=== PATIENT | male | born 1955 | race Caucasian/White ===

== ENCOUNTER 2021-04-06 11:02 | Emergency (ER) | payer MEDICAID ==
[~2021-04-06] VITALS: Ht 175.3 cm; Wt 63.6 kg
[2021-04-06 11:18] VITALS: TEMP 98.1
[2021-04-06 13:36] VITALS: BP 120/81; PULSE 72
--- NOTE | 2021-04-06 14:53 | NUR ---
SW informed that patient's daughter Torrie Frsaer wanted to speak to case management to obtain resources for patient. SW met with patient and daughter and discussed needs. SW provided resources for the community, HH agencies, nursing homes, and information in regards to establishing a PCP. Daughter provided that she has the contact information for [facility] and would like ref. faxed to their agency. SW assisted with ontaining orders to fax to facility. Nothing further.
== END 2021-04-06 13:57 | disposition home or self-care (01) ==
LOC: COL.ER 11:02
DX: F03.90 Unspecified dementia, unspecified severity, without behavioral disturbance, psychotic disturbance, mood disturbance, and anxiety (principal); K40.90 Unilateral inguinal hernia, without obstruction or gangrene, not specified as recurrent; Z01.89 Encounter for other specified special examinations

== ENCOUNTER 2021-04-16 13:41 | Inpatient (IN) | payer MEDICAID ==
[~2021-04-16] VITALS: Ht 175.3 cm; Wt 56.2 kg
[2021-04-16 14:03] LABS: HEMATOCRIT 38.7 % (42.0-52.0); HEMOGLOBIN 11.9 g/dl (13.5-18.0); MEAN CELL VOLUME 97 fl (80.0-100.0); MEAN CORPUSCULAR HEMOGLOBIN 30 pg (27.0-31.0); MEAN CORPUSCULAR HGB CONC 31 g/dl (33.0-37.0); MEAN PLATELET VOLUME 8.1 fl (7.4-10.4); PLATELET COUNT 376 K/mm3 (130-400); RED BLOOD COUNT 4.01 M/mm3 (4.20-5.60); REDCELL DISTRIBUTION WIDTH-CV 14.4 % (11.5-14.5)
[2021-04-16 14:20] LABS: BAND 16 % (0-10); LYMPHOCYTE 3 % (20.0-51.0); NEUTROPHILS 79 % (42.0-75.2); PLATELET ESTIMATE NORMAL (NORMAL)
[2021-04-16 14:22] LABS: ALANINE AMINOTRANSFERASE 35 U/L (0-55); ALBUMIN 3.3 gm/dL (3.4-4.8); ALKALINE PHOSPHATASE 92 U/L (40-150); ANION GAP 11 mmol/L (7-16); AST,SGOT 29 U/L (5-34); BILIRUBIN,TOTAL 0.6 mg/dL (0.2-1.2); BLOOD UREA NITROGEN 12 mg/dL (8-26); C-REACTIVE PROTEIN 4.07 mg/dL (0.00-0.50); CALCIUM 9.2 mg/dL (8.4-10.2); CARBON DIOXIDE 24 mmol/L (23-31); CHLORIDE 103 mmol/L (98-107); CREATININE, serum 0.77 mg/dL (0.72-1.25); GLUCOSE 113 mg/dL (70-99); LIPASE 63 U/L (8-78); POTASSIUM 4.4 mmol/L (3.5-4.5); SODIUM 138 mmol/L (136-145); TOTAL PROTEIN 6.3 gm/dL (6.2-8.1)
[2021-04-16 14:37] LABS: TROPONIN-I < 0.010 ng/mL (0.00-0.033)
[2021-04-16 16:25] LABS: COLLECTION METHOD CLEAN CATCH
[2021-04-16 16:39] LABS: MUCOUS Present /lpf; PH 7 (5-8); SQUAMOUS EPITHELIAL None Seen /hpf; URINE APPEARANCE Clear; URINE BACTERIA Rare /hpf; URINE BILIRUBIN Negative (NEGATIVE); URINE BLOOD Negative (NEGATIVE); URINE COLOR Colorless; URINE GLUCOSE Negative (NEGATIVE); URINE KETONE Negative (NEGATIVE); URINE LEUKOCYTE ESTERASE Negative (NEGATIVE); URINE NITRATE Negative (NEGATIVE); URINE PROTEIN(semi-quant) Negative (NEGATIVE); URINE RBC 0-2 /hpf; URINE UROBILINOGEN Negative (NEGATIVE)
[2021-04-16 16:48] LABS: ARTERIAL BLD GAS O2 SATURATION 95.4 % (92-100); ARTERIAL BLD GAS TCO2 CT 21.6; ARTERIAL BLOOD GAS BASE EXCESS -2.5 (-2-2); ARTERIAL BLOOD GAS HCO3 20.7 meq/L (22-26); ARTERIAL BLOOD GAS PCO2 30.8 mmHg (35-45); ARTERIAL BLOOD GAS PO2 71.4 mmHg (80-100); ARTERIAL BLOOD GAS pH 7.45 (7.35-7.45)
[2021-04-16 17:58] LABS: TROPONIN-I < 0.010 ng/mL (0.00-0.033)
--- NOTE | 2021-04-16 18:45 | NUR ---
Pt arrived to room 313, he is very drowsy. He will awaken for some questions but quickly falls back asleep. Follows some commands but pushes the nurse away. Daughter reports patient has pain to L inguinal hernia with movement. Breathing is even and unlabored on RA, intermittent wet cough present. Orders to do bedside swallow study if patient becomes alert enough for PO intake. Appears to be resting comfortably at this time, seizure precautions in place. Bed alarm in place.
[2021-04-16 19:47] VITALS: BP 98/59; PULSE 88; TEMP 99.1
--- NOTE | 2021-04-16 20:00 | NUR ---
Assessment complete. He arouses to voice but is not fully alert; he is confused, but does follow some commands. Hand hardware test engineer are equal. Bilateral feet/ankles are edematous with no pitting; his scrotum is edematous as well. A left-sided inguinal hernia is noted and is painful when palpated. Pt's sacrum is redenned but blanchable. Patient is incontinent of urine at this time and linen change/adam care is provided. Bed alarm set and frequent monitoring in progress.
[2021-04-17] VITALS (7 sets, daily range): BP systolic 95–108; BP diastolic 45–84; PULSE 73–78; TEMP 97.8–98.4
--- NOTE | 2021-04-17 05:15 | NUR ---
Patient has rested for most of the night. He was impulsive, trying to get out of bed once; he was cooperative. He had been incontinent of urine and was once again provided with hygeine and new brief. He did stand well and was able to ambulate with assistance for a short period of time in the room. Pt is still confused and neuro checks have remained consistent. Bed alarm set.
[2021-04-17 06:29] LABS: HEMOGLOBIN 10.4 g/dl (13.5-18.0); MEAN CORPUSCULAR HEMOGLOBIN 30 pg (27.0-31.0); MEAN CORPUSCULAR HGB CONC 33 g/dl (33.0-37.0); MEAN PLATELET VOLUME 8.6 fl (7.4-10.4); PLATELET COUNT 361 K/mm3 (130-400); RED BLOOD COUNT 3.45 M/mm3 (4.20-5.60); REDCELL DISTRIBUTION WIDTH-CV 14.4 % (11.5-14.5)
[2021-04-17 06:33] LABS: HEMATOCRIT 31.8 % (42.0-52.0); MEAN CELL VOLUME 92 fl (80.0-100.0)
[2021-04-17 06:46] LABS: CALCIUM 8.1 mg/dL (8.4-10.2); CREATININE, serum 0.72 mg/dL (0.72-1.25)
--- NOTE | 2021-04-17 07:30 | NUR ---
PT EASILY AGITATED, PT CANNOT ANSWER ORIENTATION QUESTIONS, ALERT TO SELF, PERICARE COMPLETED, PT INCONTINENT OF URINE, SACRUM/COCCYX VISUALIZED AND INTACT, PT WOULD NOT CLAMPER FINGERS ON COMMAND OR PERFORM OTHER COMMANDS, PT ATTEMPTINT TO GET OUT OF BED, FALL PRECAUTIONS IN PLACE, BED ALARM ON, NO OTHER NEEDS AT THIS TIME
[2021-04-17 08:00] LABS: BAND 22 % (0-10); LYMPHOCYTE 7 % (20.0-51.0); NEUTROPHILS 69 % (42.0-75.2); PLATELET ESTIMATE NORMAL (NORMAL)
--- NOTE | 2021-04-17 08:50 | NUR ---
ENTERED PT ROOM, PT TEARFUL AND KEEPS STATING "NOW HE'S , HE WAS HERE AND GONE JUST LIKE THAT". ATTEMPTED TO REORIENT PATIENT BUT PT STILL TEARFUL. VITALS TAKEN TO ASSESS FOR ATIVAN ADMINISTRATION. BP SOFT, LATA SHABAZZ NOTIFIED AND BOLUS ORDERED AND INFUSING.
--- NOTE | 2021-04-17 10:10 | NUR ---
Initial visit; Patient who appears to be confused trying to get out of his bed which had side rails. Steno Typist retrieved his nurse who tucked him in. Another nurse checked his bed alarm finding it off so changed it to 'on' for his safety.
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
[2021-04-17 11:36] LABS: TRICYCLIC ANTIDEPRESS URINE NEGATIVE
--- NOTE | 2021-04-17 13:11 | NUR ---
SW consulted Financial Counseling.
--- NOTE | 2021-04-17 16:21 | NUR ---
Patient was sitting in the recliner with the legs up and chair alarm on. Chair alarm went off and this RN entered the room. Patient was sitting on the legs of the chair and attempting to stand up. The legs of the chair started to collapse and this RN was able to grab the patient and hold him up. Patient was then transferred to the bed. Patient began crying and stating, "She was such a good horse, she was a brownie". This RN tried to console but was unsuccessful. Patient's primary RN notified of the incident.
--- NOTE | 2021-04-17 17:46 | NUR ---
OBTAINED CONSENT FROM PT DA FOR SEDATION FOR MRI AND LP AND OBTAINED CONSENT FOR LP. ANSWERED DA'S QUESTIONS TO BEST OF MY ABILITY, ABX AND FLUIDS INFUSING, PT PLEASANTLY CONFUSED AT THIS TIME. PT ATTEMPTING TO GET OUT OF BED MULTIPLE TIMES THROUGHOUT THE DAY, BED ALARM SET, NO OTHER NEEDS
--- NOTE | 2021-04-17 20:00 | NUR ---
Assessment complete. Patient currently awake in bed and is actively hallucinating; he thinks he is talking to his brother but no one is in the room. He is unable to answer any orientation questions but he does follow the command to squeeze my hands; hand production planning manager equal. Patient is afebrile at this time. Breathing on RA. Vitals WNL. Fluids infusing into right forearm IV. Bed alarm set and frequent monitoring in process. Will continue to monitor.
[2021-04-18] VITALS (8 sets, daily range): BP systolic 106–128; BP diastolic 73–83; PULSE 52–68; TEMP 97.2–98.6
--- NOTE | 2021-04-18 05:35 | NUR ---
Patient has been incontinent of urine multiple times overnight. Everytime he wakes up, he becomes emotional, sometimes sobbing. He also talks to members of his family that he thinks are in the room.
[2021-04-18 06:41] LABS: BASO % 0.1 % (0.0-2.0); EOS # 0.1 K/mm3 (0.0-0.7); EOS % 0.8 % (0-4.0); GRAN # 10.6 K/mm3 (1.4-6.5); GRAN % 88.4 % (42.2-75.2); LYMPH # 0.9 K/mm3 (1.2-3.4); LYMPH % 7.3 % (20.0-51.0); MEAN CELL VOLUME 93 fl (80.0-100.0); MEAN CORPUSCULAR HEMOGLOBIN 30 pg (27.0-31.0); MEAN CORPUSCULAR HGB CONC 32 g/dl (33.0-37.0); MEAN PLATELET VOLUME 8.6 fl (7.4-10.4); MONO # 0.4 K/mm3 (0.1-0.6); PLATELET COUNT 359 K/mm3 (130-400); RED BLOOD COUNT 3.69 M/mm3 (4.20-5.60); REDCELL DISTRIBUTION WIDTH-CV 14.4 % (11.5-14.5)
[2021-04-18 06:43] LABS: HEMATOCRIT 34.3 % (42.0-52.0)
[2021-04-18 07:01] LABS: CALCIUM 8.7 mg/dL (8.4-10.2); CREATININE, serum 0.78 mg/dL (0.72-1.25); POTASSIUM 3.6 mmol/L (3.5-4.5)
--- NOTE | 2021-04-18 07:09 | NUR ---
On 04/17/21, dowel pin worker met with patient's two daughters: Makenna [phone] and Torrie [phone] to discuss concerns related to patient's cognition and possible need for guardianship. Patient does not have a durable power of estate attorney for business or health care and has been confused. Patient's daughters moved patient to Makenna's home from [place]. Makenna states that patient will return to her home upon discharge. Worker provided education on durable power of estate attorney and the guardianship process. Worker advised that we will meet with physician team on this date and discuss possible need for guardianship. Makenna and Torrie state they would take on the roles of guardian and conservator for patient.
--- NOTE | 2021-04-18 08:05 | NUR ---
PT CONFUSED, SETTLED IN THE CHAIR, PT HAS ALREADY ATTEMPTED TO GET UP MULTIPLE TIMES, CHAIR ALARM ON, PT ATE BREAKFAST, ACID WASHER OPERATOR AWARE AND ATTEMPTING TO RESCHEDULE TEST WITH MRI. LATA SHABAZZ NOTIFIIED. ASSESSMENT PERFORMED, LLE 1+ EDEMA, WARM BLANKET BROUGHT IN FOR PT, CALL LIGHT WITHIN REACH, NO OTHER NEEDS
--- NOTE | 2021-04-18 09:27 | NUR ---
SUMA recd call from [employer], patient's daughter, who was on her way to see her father. She is aware he is still confused. ele and her sister, Makenna, are wanting to meet with this worker to establish MPOA; however, patient remains confused and tearful. SUMA spoke with Makenna Alvarado to confirm that MPOA is not possible until patient is clear and unaltered. Torrie stated they are working with an disability attorney to get patient's affairs in order to include applying for social security and Medicaid. Torrie added that patient had Medicaid of [place] at one time but she believes it lapsed.
--- NOTE | 2021-04-18 14:10 | NUR ---
PT STELLA MORA UPDATED ON PT CONDITION
--- NOTE | 2021-04-18 14:23 | NUR ---
Primary nurse was assisted with [id number] patient care by [employer] student Nenita Barnes and [employer] instructor Valery Hutchinson MSN, RN
--- NOTE | 2021-04-18 16:37 | NUR ---
SUMA staffed with the clinical team and informed them how the patient's daughter's would be interested in pursuing guardianship, if the patient cannot make his own decisions. The hospitalist does not feel like the patient has decision making capacity. The hospitalists plan to complete the Examination and Evaluation Form. SUMA met with the patient's daughter, Torrie, to update. Torrie reports that they have started the process of applying for Medicaid and to try and get Medicare early. She reports that they would be interested in pursuing guardianship. Torrie confirms that the plan is for the patient to return home with her and her sister upon discharge. She reports that they got the patient set up with the PCP, Dr. Karen Pierson, but that his first appointment with her is not until May. SUMA completed the Guardianship Questionnarie and emailed it to civil rights attorney, Efren Chaudhary. *Discharge plan: home with daughters*
--- NOTE | 2021-04-18 17:39 | NUR ---
pt returned from procedure, pt incontinent, pericare completed, sheets changed, pt laying flat, post op vitals attached, iv antibiotics infusing, no other needs
[2021-04-18 18:02] LABS: CSF MONONUCLEAR 0 % (70-100); CSF POLYMORPHONUCLEAR 100 % (0-6); CSF RBC 0 /mm3 (0-0); GLUCOSE,CSF 55 mg/dL (40-70)
--- NOTE | 2021-04-18 20:30 | NUR ---
Initial shift assessment done-- has been resting/sleeping since getting back from MRI/LP,, bandaid to back dry, VSS, patient awake now- confused, very reactive to any touch/swearing, pulling away, easily redirected at this time, incontinent of urine- cleaned up- new pull up on,, Tele on, Seizure prec, did not attemp to put on SCD,s at this time-pt does not want anything touching his legs- Bed alarm on, close to nsg station, did feed him a pudding at this time-- stated his supper was 'all wrong'
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
--- NOTE | 2021-04-18 22:35 | NUR ---
Sleeping soundly at this time
[2021-04-19] VITALS (8 sets, daily range): BP systolic 102–127; BP diastolic 71–85; PULSE 58–112; TEMP 97.5–98.6
--- NOTE | 2021-04-19 05:47 | NUR ---
Took over patient care around 0200. Patient had been changed in bed around 314, tolerated well without any aggression towards staff at that time. Around 05, patient started yelling at staff during cares. Tried to explain cares to patient, but confused and keeps asking about his sister. Unable to redirect patient to place, time, or situation. IV ABX started per orders. Not actively trying to get out of bed at this time. In bed with call light within reach. Bed alarm on.
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
[2021-04-19 09:41] LABS: BASO % 0.2 % (0.0-2.0); EOS # 0.1 K/mm3 (0.0-0.7); EOS % 1.7 % (0-4.0); GRAN # 6.9 K/mm3 (1.4-6.5); GRAN % 84.4 % (42.2-75.2); HEMOGLOBIN 10.9 g/dl (13.5-18.0); LYMPH # 0.7 K/mm3 (1.2-3.4); MEAN CELL VOLUME 94 fl (80.0-100.0); MEAN CORPUSCULAR HEMOGLOBIN 30 pg (27.0-31.0); MEAN CORPUSCULAR HGB CONC 32 g/dl (33.0-37.0); MEAN PLATELET VOLUME 8.7 fl (7.4-10.4); MONO # 0.3 K/mm3 (0.1-0.6); MONO % 4.2 % (1.7-9.3); PLATELET COUNT 334 K/mm3 (130-400); RED BLOOD COUNT 3.67 M/mm3 (4.20-5.60); REDCELL DISTRIBUTION WIDTH-CV 14.3 % (11.5-14.5)
[2021-04-19 09:42] LABS: HEMATOCRIT 34.3 % (42.0-52.0)
[2021-04-19 09:58] LABS: CALCIUM 8.9 mg/dL (8.4-10.2); CREATININE, serum 0.72 mg/dL (0.72-1.25); POTASSIUM 3.5 mmol/L (3.5-4.5)
--- NOTE | 2021-04-19 14:12 | NUR ---
Primary nurse was assisted with [id number] patient care by [employer] student Nenita Barnes and [employer] instructor Valery Hutchinson MSN, RN
--- NOTE | 2021-04-19 15:58 | NUR ---
Efren Chaudhary, litigation attorney associate, notified SUMA that he has been in contact with the patient's daughters. SW followed up with the hospitalist about the Examination and Evaluation Form. The hospitalist reports that they are still doing neuro workups and they are not sure if the patient is at his baseline yet. The hospitalist would like to hold off on completing the exam at this time. SW updated the litigation attorney associate, Efren Chaudhary.
--- NOTE | 2021-04-19 16:09 | NUR ---
DURING NEURO ASSESSMENT PT C/O PAIN, MUSA SHABAZZ CALLED FOR TYLENOL ORDER, TYLENOL GIVEN TO PT. PT DAUGHTER ARRIVED, UPDATED ON PENDING TESTS AT THIS TIME, PT SEEMS MORE PLEASANT WITH DA IN THE ROOM.
--- NOTE | 2021-04-19 17:26 | NUR ---
PT AGITATED AND YELLING OUT AT A "MARCOS". ACTIVELY HALLUCINATING SHOUTING "STOP THAT" WHEN THERE IS NO ONE IN THE ROOM. SEROQUEL DID NOT DECREASE AGITATION IN PT. OVERALL UNEVENTFUL SHIFT. PT INCONTINENT OF URINE.
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
--- NOTE | 2021-04-19 20:00 | NUR ---
Assessment complete. Patient currently awake and alert and not oriented; he is hollering at someone named Ignacio, though no one is in the room. He is provided dinner and eats approx 25%. He has been incontinent of urine and is provided with linen change and partial bed bath at this time. No new concerns, bed alarm set.
--- NOTE | 2021-04-20 04:28 | NUR ---
At this time, patient has set off bed alarm and is very agitated. He is combative and secuity is called. Haldol IV order obtained. Situation is deescalated and patient gets comfortable in bed. Will continue to monitor.
[2021-04-20 06:38] LABS: BASO % 0.2 % (0.0-2.0); EOS # 0.2 K/mm3 (0.0-0.7); EOS % 2.6 % (0-4.0); GRAN # 6.3 K/mm3 (1.4-6.5); GRAN % 75.2 % (42.2-75.2); HEMATOCRIT 38.6 % (42.0-52.0); HEMOGLOBIN 12.3 g/dl (13.5-18.0); LYMPH # 1.2 K/mm3 (1.2-3.4); LYMPH % 13.8 % (20.0-51.0); MEAN CELL VOLUME 92 fl (80.0-100.0); MEAN CORPUSCULAR HEMOGLOBIN 29 pg (27.0-31.0); MEAN CORPUSCULAR HGB CONC 32 g/dl (33.0-37.0); MEAN PLATELET VOLUME 8.7 fl (7.4-10.4); MONO # 0.6 K/mm3 (0.1-0.6); MONO % 7.2 % (1.7-9.3); PLATELET COUNT 366 K/mm3 (130-400); REDCELL DISTRIBUTION WIDTH-CV 14.1 % (11.5-14.5)
[2021-04-20 06:54] LABS: CALCIUM 9.5 mg/dL (8.4-10.2); CREATININE, serum 0.75 mg/dL (0.72-1.25); POTASSIUM 3.7 mmol/L (3.5-4.5)
[2021-04-20 08:08] VITALS: BP 125/80; PULSE 63; TEMP 97.7
--- NOTE | 2021-04-20 08:44 | NUR ---
Patient visibly upset. Talked with patient and was able to calm down. Scheduled medications given. Shift assessment preformed. Unable to assess sacral region at this time. Will attempt at a later time. Testicular swelling noted. General bruising and abrasions noted. Patient denies any pain, discomfort, or further needs at this time. VSS. Call light in reach. Fall precautions in place.
--- NOTE | 2021-04-20 10:16 | NUR ---
Patient's bottom reddened, blanchable.
--- NOTE | 2021-04-20 11:40 | NUR ---
PT ENTERED PATIENT'S ROOM. PATIENT BECAME COMBATIVE AND THREW IV POLE AT STAFF. PATIENT CALMED AND REDIRECTED. PO SEROQUEL GIVEN TO PATIENT, PATIENT SPIT MEDICATION BACK AT THIS RN. REATTEMPTED TO GIVE NEW MEDICATION TO PATIENT, PATIENT ABLE TO SWALLOW. PATIENT IS CURRENTLY RESTING IN BED WITH EYES CLOSED. RESPIRATIONS EVEN AND UNLABORED.
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
--- NOTE | 2021-04-20 15:48 | NUR ---
PRN tylenol given for neck pain.
--- NOTE | 2021-04-20 17:50 | NUR ---
Patient currently resting in bed eyes closed, no signs of pain or discomfort. Respirations even and unlabored. Call light in reach. Fall precautions in place. VSS. Patient orientated to self.
--- NOTE | 2021-04-20 20:08 | NUR ---
[facility] from PEYTON Guzman. At shift change patient is getting out of bed, throwing his ice cream container, and cursing at staff. Scheduled seroquel and PRN seroquel administered. Patient requests a cheeseburger and fries and order is placed to the kitchen. Patient made comfortable in bed with bed alarm set. Will continue to monitor.
--- NOTE | 2021-04-21 00:46 | NUR ---
Patient currently resting comfortably in bed. Bed alarm set.
[2021-04-21 04:29] VITALS: BP 155/63; PULSE 66; TEMP 97.9
[2021-04-21 08:08] VITALS: BP 128/88; PULSE 56; TEMP 98.1
--- NOTE | 2021-04-21 08:25 | NUR ---
Patient resting quietly upon entering the room. Scheduled medications given. Shift assessment preformed. Patient only oriented to self, reorientation unsuccessful. Patient's sacrum area reddened, but blanchable. Scrotum swollen. Patient denies any pain, discomfort, or further needs at this time. Call light in reach. Fall precautions in place. Seizure precautions in place. VSS.
[2021-04-21 09:29] LABS: CALCIUM 9.6 mg/dL (8.4-10.2); CREATININE, serum 0.76 mg/dL (0.72-1.25); POTASSIUM 4.2 mmol/L (3.5-4.5)
[2021-04-21 10:05] LABS: HEMATOCRIT 39.8 % (42.0-52.0); MEAN CELL VOLUME 91 fl (80.0-100.0); MEAN CORPUSCULAR HEMOGLOBIN 30 pg (27.0-31.0); MEAN CORPUSCULAR HGB CONC 33 g/dl (33.0-37.0); MEAN PLATELET VOLUME 8.7 fl (7.4-10.4); PLATELET COUNT 417 K/mm3 (130-400); RED BLOOD COUNT 4.36 M/mm3 (4.20-5.60)
[2021-04-21 11:49] VITALS: BP 122/72; PULSE 59; TEMP 97.4
[2021-04-21 17:13] VITALS: BP 122/70; PULSE 74; TEMP 98.1
--- NOTE | 2021-04-21 17:43 | NUR ---
Patient had a much better day today. Able to perform cares without episodes of agitation. Continue to be confused, only orientated to self. Patient had 4 episodes of incontinence today. Currenly resting quietly in bed. Breathing unlabored and even. Call light in reach. VSS.
--- NOTE | 2021-04-21 23:58 | NUR ---
PT REMAINS AWAKE, YELLING AND CURSING AT STAFF, TRYING TO GET UP OUT OF BED. ATTEMPTED TO REORIENT PT WITHOUT SUCCESS. PT GIVEN SANDWICH AND VANILLA PUDDING. PRN DOSE OF SEROQUEL GIVEN.
[2021-04-22 00:47] VITALS: BP 127/75; PULSE 78; TEMP 98.6
--- NOTE | 2021-04-22 07:11 | NUR ---
PT HAS SLEPT WELL SINCE 0100, HELD VS AND AM LAB UNTIL AWAKE.
[2021-04-22 07:24] VITALS: BP 113/70; PULSE 61; TEMP 98.2
[2021-04-22 07:49] LABS: BASO % 0.2 % (0.0-2.0); EOS # 0.1 K/mm3 (0.0-0.7); GRAN # 9.8 K/mm3 (1.4-6.5); GRAN % 81.1 % (42.2-75.2); HEMOGLOBIN 12.1 g/dl (13.5-18.0); LYMPH # 1.2 K/mm3 (1.2-3.4); LYMPH % 9.7 % (20.0-51.0); MEAN CELL VOLUME 91 fl (80.0-100.0); MEAN CORPUSCULAR HEMOGLOBIN 30 pg (27.0-31.0); MEAN CORPUSCULAR HGB CONC 33 g/dl (33.0-37.0); MEAN PLATELET VOLUME 8.3 fl (7.4-10.4); MONO # 0.8 K/mm3 (0.1-0.6); MONO % 6.7 % (1.7-9.3); PLATELET COUNT 378 K/mm3 (130-400); RED BLOOD COUNT 4.09 M/mm3 (4.20-5.60); REDCELL DISTRIBUTION WIDTH-CV 14.3 % (11.5-14.5)
--- NOTE | 2021-04-22 08:00 | NUR ---
PT PLEASANT W/ NURSE, YELLING SOME WHEN NO ONE IS IN ROOM, CONFUSED, SAT UP IN BED FOR BREAKFAST, MEDICATIONS GIVEN, KEPPRA INFUSING WITH NS, ASSESSMENT PERFORMED, CALL LIGHT WITHIN REACH, JUICE BROUGHT IN PER PT REQUEST, NO OTHER NEEDS
[2021-04-22 08:06] LABS: CALCIUM 9.2 mg/dL (8.4-10.2); CREATININE, serum 0.77 mg/dL (0.72-1.25); POTASSIUM 4.3 mmol/L (3.5-4.5)
[2021-04-22 11:58] VITALS: BP 117/75; PULSE 83; TEMP 97.5
--- NOTE | 2021-04-22 16:51 | NUR ---
PT ALERT, NOT ORIENTED, PT TOOK MEDS, IV ANX HUNG, EATING AND DRINKING WELL, DA UPDATED, FAMILY WANTS TO TAKE PT HOME AND DOES NOT WANT TO USE A FACILITY.
[2021-04-22 16:56] VITALS: BP 120/72; PULSE 65; TEMP 99.7
[2021-04-22 19:35] VITALS: BP 105/64; PULSE 68; TEMP 98.6
[2021-04-22 23:49] VITALS: BP 134/92; PULSE 93
--- NOTE | 2021-04-23 03:00 | NUR ---
PT HAS BEEN AWAKE ALL SHIFT, SANDWICH, COOKIE AND SPRITE GIVEN AT 2100, CURRENTLY YELLING OUT THAT HE IS HUNGRY, SANDWICH, COOKIE AND PEPSI, GIVEN.
[2021-04-23 05:40] VITALS: BP 109/73; PULSE 59; TEMP 97.8
[2021-04-23 07:47] LABS: HEMOGLOBIN 11.8 g/dl (13.5-18.0); MEAN CELL VOLUME 90 fl (80.0-100.0); MEAN CORPUSCULAR HEMOGLOBIN 29 pg (27.0-31.0); MEAN CORPUSCULAR HGB CONC 32 g/dl (33.0-37.0); MEAN PLATELET VOLUME 8.5 fl (7.4-10.4); PLATELET COUNT 444 K/mm3 (130-400); RED BLOOD COUNT 4.03 M/mm3 (4.20-5.60); REDCELL DISTRIBUTION WIDTH-CV 13.8 % (11.5-14.5)
[2021-04-23 07:53] LABS: HEMATOCRIT 36.4 % (42.0-52.0)
[2021-04-23 08:00] VITALS: BP 107/77; PULSE 75; TEMP 97.8
--- NOTE | 2021-04-23 08:00 | NUR ---
PT ALERT, GETS FRUSTRATED DURING MEAL TIMES, THROWS SILVERWARE IF SOMETHING SPILLS, INCONTINENT OF URINE, PT NOT ORIENTED, ASSESSMENT PERFORMED
[2021-04-23 08:03] LABS: CREATININE, serum 0.84 mg/dL (0.72-1.25); POTASSIUM 4.1 mmol/L (3.5-4.5)
[2021-04-23 08:15] LABS: BAND 7 % (0-10); LYMPHOCYTE 11 % (20.0-51.0); NEUTROPHILS 76 % (42.0-75.2); PLATELET ESTIMATE INCREASED (NORMAL)
--- NOTE | 2021-04-23 08:26 | NUR ---
(Late Entry)- On 04/22, SUMA received a call from patient's daughter, Torrie who advised she and her sister plan to take patient home. Torrie would be interested in home health and private duty services. SUMA explained the difference between HH and private duty. SUMA also reviewed agencies that serve [place]. Torrie advised they are working on establishing Medicare/Medicaid.
[2021-04-23 11:43] VITALS: BP 110/70; PULSE 69; TEMP 98
[2021-04-23 16:52] VITALS: BP 125/69; PULSE 70; TEMP 97.9
--- NOTE | 2021-04-23 16:52 | NUR ---
Unindentured Apprentice collaborated with HARIKA Mercer and Roxane at [facility] to have new consult placed so that Dr. Jimenez can assess for capacity. SUMA also followed up with Sylvie about Exam and Eval paperwork for guardianship and she will speak with Hospitalist about this. SW contacted patient's daughter, Torrie who advised she has been here to visit and will be here tomorrow late afternoon. SW asked about calling her during rounds so Hospitalist can speak with her directly and she advised to call her sister Makenna who will be available in the morning. Torrie and Makenna live next to each other and are working together to get patient home. SUMA followed up with Humberto from Financial Counseling and patient would need a Guardian established to have his daughters assist with Medicaid application.
--- NOTE | 2021-04-23 17:28 | NUR ---
PT INFORMATION FAXED TO [facility], PT NAPPING INTERMITTANTLY IN SHIFT, PT EATING MAJORITY OF MEALS, ATTACHED EXTERNAL CATH TO HELP WITH URINARY INCONTINENCE, NO OTHER NEEDS
[2021-04-24 00:53] VITALS: BP 111/62; PULSE 66
[2021-04-24 00:54] VITALS: TEMP 98.2
[2021-04-24 07:15] LABS: BASO % 0.3 % (0.0-2.0); EOS # 0.2 K/mm3 (0.0-0.7); EOS % 1.4 % (0-4.0); GRAN # 8.7 K/mm3 (1.4-6.5); GRAN % 79.4 % (42.2-75.2); HEMATOCRIT 39.2 % (42.0-52.0); HEMOGLOBIN 12.6 g/dl (13.5-18.0); LYMPH % 9.5 % (20.0-51.0); MEAN CELL VOLUME 91 fl (80.0-100.0); MEAN CORPUSCULAR HEMOGLOBIN 29 pg (27.0-31.0); MEAN CORPUSCULAR HGB CONC 32 g/dl (33.0-37.0); MEAN PLATELET VOLUME 8.5 fl (7.4-10.4); MONO # 0.9 K/mm3 (0.1-0.6); MONO % 8.2 % (1.7-9.3); PLATELET COUNT 481 K/mm3 (130-400); RED BLOOD COUNT 4.31 M/mm3 (4.20-5.60)
[2021-04-24 07:22] LABS: CALCIUM 9.6 mg/dL (8.4-10.2); CREATININE, serum 0.79 mg/dL (0.72-1.25); POTASSIUM 4.1 mmol/L (3.5-4.5)
[2021-04-24 07:56] VITALS: BP 120/81; PULSE 68; TEMP 98.3
[2021-04-24 11:37] VITALS: BP 113/71; PULSE 65; TEMP 97.8
--- NOTE | 2021-04-24 16:13 | NUR ---
Cable Tv Installer attended clinical rounds with the team and had patient's daughter, Makenna on speaker phone. SUMA had collaborated with PT who advised patient was max assist of two for even just sitting on the edge of the bed. This was relayed to patient's daughter, Makenna who advised patient was not that weak before hospitalization. SUMA advised Makenna that if patient cannot return home, a [facility] facility will be most appropriate placement due to patient's behaviors and agitation. Makenna does not want patient "locked up" somewhere and wants to be able to visit patient. SUMA advised Makenna that at this time home is not recommended for patient. SUMA advised Makenna that Guardianship is being pursued and that the criminal attorney fees would be family's responsibility. Makenna would like a estimated cost. SUMA emailed Efren Chaudhary Land Lease Information Clerk to provide update. SUMA Emanuel faxed referrals to [facility] facilities. SUMA followed up with patient's other daughter, Torrie who is here to visit patient. SUMA updated Torrie on discharge recommendation for [facility]. SUMA advised patient is a max assist of two and that home is not recommended at this time. SUMA advised that a SNF would not be able to accept due to patient's behaviors and agitation and that [facility] would be the most appropriate placement option. Torrie advised they would consider the closest facility, which is [facility]. SUMA advised Torrie that if they take patient home and cannot care for him, it will be very challenging to have him placed anywhere from home. Torrie advised she would talk more with her sister about this. SUMA advised Torrie that the criminal attorney fee for Guardianship would be family's responsibility. Torrie advised they have applied for Medicaid for patient. Discharge Plan: [facility], working on establishing Guardianship and Medicaid.
--- NOTE | 2021-04-24 16:35 | NUR ---
[facility] referrals sent to the following facilities: [facility] (wait list) [facility] (Wait list) [facility] (Currently 4 on waitlist. No beds available until possibly next week) [facility]
--- NOTE | 2021-04-24 19:23 | NUR ---
Patient has had an ok day. Has been alert, but only able to remember name. Has had small outbursts today, but able to be calmed down without incident. Scheduled medication given. Shift assessment preformed. VSS. Patient resting in bed peacefully at this time. Respirations unlabored and even. Call light in reach. Fall precautions in place. Seizure precautions in place.
[2021-04-25 01:15] VITALS: BP 126/75; PULSE 58; TEMP 97.8
--- NOTE | 2021-04-25 06:40 | NUR ---
Pt. resting in bed, awake. This RN introduced self to pt., as well as student nurse introduced self to the patient. Pt. reports he is feeling good and denies pain. Call light and belongings in reach, bed alarm on.
[2021-04-25 06:47] LABS: BASO % 0.3 % (0.0-2.0); EOS # 0.1 K/mm3 (0.0-0.7); EOS % 1.3 % (0-4.0); GRAN # 9.1 K/mm3 (1.4-6.5); GRAN % 81.2 % (42.2-75.2); HEMATOCRIT 39.7 % (42.0-52.0); HEMOGLOBIN 12.8 g/dl (13.5-18.0); LYMPH # 1.1 K/mm3 (1.2-3.4); LYMPH % 9.7 % (20.0-51.0); MEAN CELL VOLUME 90 fl (80.0-100.0); MEAN CORPUSCULAR HEMOGLOBIN 29 pg (27.0-31.0); MEAN CORPUSCULAR HGB CONC 32 g/dl (33.0-37.0); MEAN PLATELET VOLUME 8.2 fl (7.4-10.4); MONO # 0.7 K/mm3 (0.1-0.6); MONO % 6.5 % (1.7-9.3); PLATELET COUNT 496 K/mm3 (130-400); RED BLOOD COUNT 4.39 M/mm3 (4.20-5.60); REDCELL DISTRIBUTION WIDTH-CV 13.7 % (11.5-14.5)
[2021-04-25 07:06] LABS: CALCIUM 10.2 mg/dL (8.4-10.2); CREATININE, serum 0.83 mg/dL (0.72-1.25); POTASSIUM 4.7 mmol/L (3.5-4.5)
[2021-04-25 07:48] VITALS: BP 106/76; PULSE 71; TEMP 98.5
--- NOTE | 2021-04-25 08:21 | NUR ---
Pt. progressing w/ plan of care. Pt. tearful this AM, pt. knows he is in the hospital but does not know which one and pt. does not know the date. Pt. reports he is hungry. Pt. was able to drink 100% of his ensure this AM. hull and deck remover Sayda changed pt. because he was incontinent of urine. Bed alarm on, call light in reach.
[2021-04-25 11:38] VITALS: BP 100/73; PULSE 84; TEMP 97.8
[2021-04-25 12:51] LABS: HSV 2 DNA PCR QUAL Not Detected (())
--- NOTE | 2021-04-25 13:53 | NUR ---
Primary nurse was assisted with [phone] patient care by [employer] student Sayda Mejia and [employer] instructor Valery Hutchinson MSN, RN.
[2021-04-25 16:03] VITALS: BP 104/72; PULSE 74; TEMP 97.8
--- NOTE | 2021-04-25 16:13 | NUR ---
Sports Equipment Supervisor followed up on [facility] referrals: [facility]Wait list of [facility] [place]- Does not contract with Medicaid SUMA sent completed Exam and Eval to assistant community manager, Efren Chaudhary. SUMA followed up with patient's daughter, Torrie who advised they are still considering taking patient home and will have a decision tomorrow morning. SUMA updated Hospitalist.
--- NOTE | 2021-04-25 16:19 | NUR ---
Pt. progressing w/ plan of care. Pt. ambulated the hallway w/ therapy today. Pt. has been incontinent and pericare/changing has been done PRN today. This RN spoke w/ pt.'s daughter and let her know how the pt. was doing today. Pt. resting in bed quietly at this time. This RN spoke w/ HARIKA Ann reports it is OK to d/c neuro checks q4hrs. Bed alarm on, call light in reach.
[2021-04-25 20:26] VITALS: BP 92/66; PULSE 65
--- NOTE | 2021-04-26 01:00 | NUR ---
Patient with increased aggitation, clean and dry, snack given, repositioned in bed, call placed to oncall Hospitalist- see new orders.
[2021-04-26 06:38] LABS: BASO % 0.3 % (0.0-2.0); EOS # 0.2 K/mm3 (0.0-0.7); EOS % 3.1 % (0-4.0); GRAN # 4.3 K/mm3 (1.4-6.5); GRAN % 69.7 % (42.2-75.2); HEMATOCRIT 38.6 % (42.0-52.0); HEMOGLOBIN 12.4 g/dl (13.5-18.0); LYMPH # 1.1 K/mm3 (1.2-3.4); LYMPH % 18.3 % (20.0-51.0); MEAN CELL VOLUME 91 fl (80.0-100.0); MEAN CORPUSCULAR HEMOGLOBIN 29 pg (27.0-31.0); MEAN CORPUSCULAR HGB CONC 32 g/dl (33.0-37.0); MONO # 0.5 K/mm3 (0.1-0.6); PLATELET COUNT 482 K/mm3 (130-400); RED BLOOD COUNT 4.26 M/mm3 (4.20-5.60); REDCELL DISTRIBUTION WIDTH-CV 13.8 % (11.5-14.5)
[2021-04-26 06:59] LABS: CALCIUM 9.8 mg/dL (8.4-10.2); CREATININE, serum 0.86 mg/dL (0.72-1.25); POTASSIUM 4.4 mmol/L (3.5-4.5)
[2021-04-26 07:35] VITALS: BP 96/65; PULSE 60; TEMP 97.9
--- NOTE | 2021-04-26 08:26 | NUR ---
PT PLEASANT, ALERT BUT NOT ORIENTED, PT ASSESSMENT PERFORMED, PT FINISHING BREAKFAST, CHOCOLATE MILK BROUGHT IN FOR PT.
--- NOTE | 2021-04-26 10:29 | NUR ---
pt in bed, HOB elevated high fowlers. pt oriented to self only, [facility] [employer] student nurse did shift assessment at this time. Pt brief and linens soiled. With assistance by another [employer] [facility] student nurse, clean gown, changed linens, gave bed bath and applied warm blanket for comfort. Pt responded well.
[2021-04-26 11:51] VITALS: BP 93/63; PULSE 66; TEMP 97.5
--- NOTE | 2021-04-26 14:21 | NUR ---
Primary nurse was assisted with [id number] patient care by [employer] [facility] [employer] [facility] student Gilma Lieberman and [facility] Valery Hutchinson MSN, RN
[2021-04-26 15:42] VITALS: BP 100/60; PULSE 75; TEMP 98.1
--- NOTE | 2021-04-26 16:15 | NUR ---
Pastry Supervisor received a message from Olivia at [facility] and they are at capacity. [facility]MA followed up with Torrie about discharge plan and they would like to take patient home. Torrie states Makenna now has COVID so they are working on arranging things for [facility] to go [facility]. [facility] collaborated with Hospitalist and patient will discharge home tomorrow. SUMA provided information to Torrie about private duty agencies. Torrie advised patient has a new patient appointment on 06/[address] Pierson at [facility]. SUMA called PEYTON Cookdoctor of audiology at [facility] who confirmed appointment and advised she will follow up with patient's daughter to try to move up appointment. Torrie reports she had an appointment with social security today and they are working on establishing Medicare/Medicaid. SUMA followed up with Efren Chaudhary Training And Quality Manager to provide update. Efren advised the Guardianship case was filed today.
--- NOTE | 2021-04-26 17:22 | NUR ---
PT PLEASANTLY CONFUSED AT THIS TIME, HALLUCINATING IN ROOM, PT INCONTINENT OF URINE AND STOOL, PERICARE COMPLETED, PT SITTING UP EATING DINNER AT THIS TIME. PT DENIES PAIN OR DISCOMFORT, PLAN TO DC W/ DAUGHTER TOMORROW.
--- NOTE | 2021-04-27 03:44 | NUR ---
Resting quietly, incontinent of bladder and bowel, easily redirected, respirations even and unlabored, skin warm and dry, confusion persists, will continue to monitor.
[2021-04-27 04:00] VITALS: BP 105/61; PULSE 62; TEMP 98.6
--- NOTE | 2021-04-27 07:43 | NUR ---
PT AGITATED, ATTEMPTING TO GET OUT OF BED MULTIPLE TIMES, BED ALARM SET, FALL PRECAUTIONS IN PLACE, MORNING MEDICATIONS GIVEN ALONG WITH SEROQUEL, CHOCOLATE MILK X3 BROUGHT IN FOR PT, BRIEF CHECKED FOR INCONTINENCE, PT REPOSITIONED, BREAKFAST BROUGHT IN FOR PT, NO OTHER NEEDS
[2021-04-27 07:44] VITALS: BP 120/76; PULSE 60; TEMP 97.5
--- NOTE | 2021-04-27 08:50 | NUR ---
PT GETTING OUT OF BED, BED ALARM SOUNDING, PT TAKEN ON WALK, STEADY WITH WALKER AND GAIT BELT. PT ASSISTED BACK INTO BED AFTER, PERICARE PROVIDED FOR URINARY INCONTINENCE, NO OTHER NEEDS
[2021-04-27] MEDS ORDERED: KEPPRA 500MG500 MG PO ×3 (09:28→15:01)
[2021-04-27] MEDS ORDERED: SEROQUEL 2525 MG/TAB PO ×3 (09:28→15:01)
[2021-04-27 12:15] VITALS: BP 103/60; PULSE 65; TEMP 97.7
--- NOTE | 2021-04-27 14:17 | NUR ---
pt incontinent, pericare provided, pt changed into clothes for dc, iv to [facility] dc'd, dishcarge paperwork went over with DA, no questions at this time. pt escorted out with family and pt belongings. DA called later stating [facility] was closed, script transferred to [facility].
--- NOTE | 2021-04-30 10:35 | NUR ---
Confirming that skilled home health was not arranged due to the fact that patient does not have health insurance and agencies will not accept private pay statu. athletic turf worker, Nenita, provided daughter with private duty care options.
== END 2021-04-27 14:17 | disposition home or self-care (01) | DRG 871 ==
LOC: COL.ER 13:41 → MEDICAL 14:55
PROVIDERS: Emergency Medicine; Internal Medicine Cardiovascular Disease; Physician Assistant; ADMIT Internal Medicine
DX: A41.9 Sepsis, unspecified organism (principal); G93.41 Metabolic encephalopathy; J69.0 Pneumonitis due to inhalation of food and vomit; E44.0 Moderate protein-calorie malnutrition; Z68.1 Body mass index [BMI] 19.9 or less, adult; F03.91 Unspecified dementia, unspecified severity, with behavioral disturbance; R65.20 Severe sepsis without septic shock; K40.90 Unilateral inguinal hernia, without obstruction or gangrene, not specified as recurrent; N43.3 Hydrocele, unspecified; Z20.822 Contact with and (suspected) exposure to COVID-19
CPT/HCPCS: 99223-AI; 99231-AI; 99232-AI; 99233-AI; 99239; A9585; J1630; J1650; J1953; J2060; J2250; J2543; J2704; J3370; J7030; J7040; J7050; Q9967

== ENCOUNTER 2021-06-06 09:55 | Observation (INO) | payer MEDICAID ==
[~2021-06-06] VITALS: Wt 75.0 kg
[2021-06-06] VITALS (7 sets, daily range): BP systolic 120–138; BP diastolic 64–82; PULSE 72–91; TEMP 97.2–98.2
[~2021-06-06 09:55] MED LIST: KEPPRA 500MG500 MG PO; SEROQUEL 2525 MG/TAB PO
[2021-06-06 10:17] LABS: HEMATOCRIT 42.6 % (42.0-52.0); HEMOGLOBIN 13.9 g/dl (13.5-18.0); MEAN CELL VOLUME 88 fl (80.0-100.0); MEAN CORPUSCULAR HEMOGLOBIN 29 pg (27-31); MEAN CORPUSCULAR HGB CONC 33 g/dl (33.0-37.0); MEAN PLATELET VOLUME 8.3 fl (7.4-10.4); PLATELET COUNT 350 K/mm3 (130-400); RED BLOOD COUNT 4.82 M/mm3 (4.20-5.60); REDCELL DISTRIBUTION WIDTH-CV 14.2 % (11.5-14.5)
[2021-06-06 10:34] LABS: BAND 5 % (0-10); LYMPHOCYTE 1 % (20.0-51.0); NEUTROPHILS 89 % (42.0-75.2); PLATELET ESTIMATE NORMAL (NORMAL)
[2021-06-06 10:35] LABS: ALANINE AMINOTRANSFERASE 17 U/L (0-55); ALBUMIN 3.6 gm/dL (3.4-4.8); ALKALINE PHOSPHATASE 93 U/L (40-150); ANION GAP 11 mmol/L (7-16); AST,SGOT 19 U/L (5-34); BILIRUBIN,TOTAL 0.6 mg/dL (0.2-1.2); BLOOD UREA NITROGEN 15 mg/dL (8-26); CALCIUM 9.3 mg/dL (8.4-10.2); CARBON DIOXIDE 25 mmol/L (23-31); CHLORIDE 103 mmol/L (98-107); CREATININE, serum 0.95 mg/dL (0.72-1.25); GLUCOSE 123 mg/dL (70-99); POTASSIUM 4.5 mmol/L (3.5-4.5); SODIUM 139 mmol/L (136-145); TOTAL PROTEIN 6.9 gm/dL (6.2-8.1)
[2021-06-06 10:45] LABS: TROPONIN-I < 0.010 ng/mL (0.00-0.033)
--- NOTE | 2021-06-06 21:13 | NUR ---
CARDIZEM 10MG BOLUS GIVEN.
--- NOTE | 2021-06-07 01:09 | NUR ---
SHIFT ASSESSMENT COMPLETED. DRESSING TO L LOWER ABD CDI. NEAL TO DEPENDENT DRAINAGE WITH CLEAR YELLOW URINE OUTPUT. REPORTS EARLIER FROM PEYTON MARIE THAT PATIENT WAS TRYING TO CLIMB OUT OF BED. CURRENTLY ASLEEP IN BED. CALL LIGHT WITHIN REACH.
[2021-06-07 03:19] VITALS: BP 121/67; PULSE 84; TEMP 98.3
--- NOTE | 2021-06-07 07:04 | NUR ---
BEDSIDE REPORT RECEIVED FROM SHAUN TODD, PT RESTING IN BED IVF RUNNING. CALL LIGHT WITHIN REACH.
[2021-06-07 07:27] VITALS: BP 108/62; PULSE 81; TEMP 97.9
[2021-06-07 11:49] VITALS: BP 110/71; PULSE 72; TEMP 99.6
[2021-06-07 15:33] VITALS: BP 111/71; PULSE 71; TEMP 97.8
--- NOTE | 2021-06-07 18:34 | NUR ---
PT REMAIN CONFUSED AND AGITATED THREW A GLASS OF WATER ON THE FLOOR REFUSING TO EAT.NEAL REMOVED THIS AM AND PT URNATED SEVERAL TIMES. SURGICAL INCSION REMAIN INTACT WIUTH 4X4 AND MEDIPORE TAPE.DAUGHTER GIOVANI CALLED AND UPDATED ON CPOC. BED ALARM ACTIVATED.
[2021-06-07 19:16] VITALS: BP 119/67; PULSE 68; TEMP 97.8
--- NOTE | 2021-06-07 20:00 | NUR ---
Pt. laying in bed. Pt. is alert and confused. Shift assessmet complete. INT to rt. ac patent. IV to lt. hand patent, IV fluids infusing per orders. Abd. incision CDI. Pt. denies pain or other needs, call light within reach.
--- NOTE | 2021-06-07 23:14 | NUR ---
2235: PT REFUSING VITAL SIGNS AT THIS TIME. TOLD RN TO "GET THE F OUT OF MY ROOM".
[2021-06-08 07:00] VITALS: BP 129/96; PULSE 66; TEMP 98.2
--- NOTE | 2021-06-08 08:40 | NUR ---
Assessment completed, drowsy but arousable, disoriented, he is calm this morning and has not had any behavioral issues this morning, he has significant scrotal edema and physician si aware, he is sitting up eating some breakfast, BS are hypoactive throughout, I have discussed his POC with , plans for discharge home with family today
[2021-06-08 11:29] VITALS: BP 108/72; PULSE 75; TEMP 97.7
--- NOTE | 2021-06-08 13:27 | NUR ---
Discahrge instructions reviewed with patient daughter/ caregiver, isntructed to follow up with PCP next week, insturcted to monitor incision site for signs of infections, instructed he may shower and bathe but to keep site clean and dry, instructed to take stool softer/ laxative of choice if needed, expalined some scrotal swelling is common and not to worry unless he becomes unable to void urine, IV sites removed, incontinent cares provided, RADIO ASSEMBLER escorted them out by wheelchair
== END 2021-06-08 13:31 | disposition home or self-care (01) ==
LOC: COL.ER 09:55 → SURG 16:01
PROVIDERS: Emergency Medicine; ADMIT Surgery
DX: K40.30 Unilateral inguinal hernia, with obstruction, without gangrene, not specified as recurrent (principal); K56.609 Unspecified intestinal obstruction, unspecified as to partial versus complete obstruction; F03.90 Unspecified dementia, unspecified severity, without behavioral disturbance, psychotic disturbance, mood disturbance, and anxiety; F32.A Depression, unspecified; F41.9 Anxiety disorder, unspecified; Z79.899 Other long term (current) drug therapy
CPT/HCPCS: A4314; C1781; G0378; J7040; J7120; Q9967

== ENCOUNTER 2021-06-18 16:35 | Emergency (ER) | payer SELFPAY ==
[~2021-06-18] VITALS: Ht 170.2 cm; Wt 86.4 kg
[2021-06-18 17:51] VITALS: TEMP 99.2
[2021-06-18 18:36] LABS: BASO % 0.3 % (0.0-2.0); EOS # 0.3 K/mm3 (0.0-0.7); EOS % 2.9 % (0.0-4.0); GRAN # 6.7 K/mm3 (1.4-6.5); GRAN % 73.7 % (42.2-75.2); HEMATOCRIT 39.5 % (42.0-52.0); HEMOGLOBIN 12.7 g/dl (13.5-18.0); LYMPH # 1.2 K/mm3 (1.2-3.4); LYMPH % 13.6 % (20.0-51.0); MEAN CELL VOLUME 89 fl (80.0-100.0); MEAN CORPUSCULAR HEMOGLOBIN 29 pg (27-31); MEAN CORPUSCULAR HGB CONC 32 g/dl (33.0-37.0); MEAN PLATELET VOLUME 8.4 fl (7.4-10.4); MONO # 0.9 K/mm3 (0.1-0.6); MONO % 9.3 % (1.7-9.3); PLATELET COUNT 313 K/mm3 (130-400); RED BLOOD COUNT 4.42 M/mm3 (4.20-5.60)
[2021-06-18 18:55] LABS: ALBUMIN 3.6 gm/dL (3.4-4.8); BILIRUBIN,TOTAL 0.5 mg/dL (0.2-1.2); C-REACTIVE PROTEIN 0.9 mg/dL (0.00-0.50); CALCIUM 9.3 mg/dL (8.4-10.2); POTASSIUM 4.5 mmol/L (3.5-4.5)
[2021-06-18 19:34] LABS: CREATININE, serum 0.9 mg/dL (0.72-1.25)
[2021-06-18 20:35] VITALS: BP 130/84; PULSE 73
== END 2021-06-18 20:35 | disposition home or self-care (01) ==
LOC: COL.ER 16:35
PROVIDERS: Family Medicine
DX: F03.90 Unspecified dementia, unspecified severity, without behavioral disturbance, psychotic disturbance, mood disturbance, and anxiety (principal)
CPT/HCPCS: J2405; J7120

== ENCOUNTER 2021-11-05 09:14 | Day surgery (SDC) | payer MEDICARE, MEDICAID ==
[~2021-11-05] VITALS: Ht 170.2 cm; Wt 69.4 kg
[2021-11-05] MEDS ORDERED: EXELON PAT4.6 MG/24 TD (09:47)
[2021-11-05] MEDS ORDERED: NAMENDA PO (09:47)
[2021-11-05 10:08] VITALS: BP 123/75; PULSE 57; TEMP 98.8
[2021-11-05] MEDS ORDERED: NORCOELIX PO ×2 (12:29→15:54)
[2021-11-05 13:05] VITALS: BP 134/66; PULSE 58
[2021-11-05 13:20] VITALS: BP 121/83; PULSE 58
[2021-11-05 13:24] VITALS: TEMP 97.1
[2021-11-05 13:35] VITALS: BP 126/71; PULSE 61
--- NOTE | 2021-11-05 15:45 | NUR ---
1305: Patient arrived back into [facility] from PACU. Patient is alert. Vital signs stable. Report received from PEYTON Marin. Call light left within reach. Muffin and water brought to patient. Right groin dressing is clear, dry, and intact. Left hydrocele incision has small amount of sanguineous drainage. 1320: Patient vitally stable. Tolerating food and drink well. No indication of pain or nausea at this time. 1335: Unable educate patient on needing to void prior to discharge due to patient's dementia, no family members present to assist with patient's cues. Patient normally wears depends at baseline per family. Notified Dr. Elias' of unable to get the patient to void prior to discharge. Dr. Elias' ok'd discharge without voiding. 1400: Went through discharge instructions with Makenna via telephone. Questions answered. Makenna, daughter, to meet at emergency department entrance. Patient got dressed with 2 assist. Dressing remains clean, dry, and intact and small amount of sanguineous drainage noted to hydrocele incision as previously assessed. Patient then escorted to emergency department entrance via wheelchair and left in the care of his daughter, Makenna.
== END 2021-11-05 14:00 | disposition home or self-care (01) ==
LOC: SDCO 09:14
DX: K40.90 Unilateral inguinal hernia, without obstruction or gangrene, not specified as recurrent (principal); N43.3 Hydrocele, unspecified
CPT/HCPCS: C1781; J0690; J2704; J3010; J7120